=== PATIENT | female | born 1995 | race Hispanic/Latino ===

== ENCOUNTER 2019-11-13 17:12 | Emergency (ER) | payer OTHER, SELFPAY ==
[2019-11-13 17:16] VITALS: BP 125/86; PULSE 80; RESP 16; TEMP 36.5; O2SAT 97; BMI 25.7
--- NOTE | 2019-11-13 18:00 | ED.ABDPAIN ---
HPI - Abdominal Pain <Alexa Valdovinos PA-C - Last Filed: 11/13/19 19:37> General Chief Complaint: Abdominal Pain Stated Complaint: abdominal pains Time Seen by Provider: 11/13/19 17:26 Source: patient Mode of arrival: Ambulatory Limitations: no limitations History of Present Illness HPI narrative: This generally healthy 23-year-old female comes to ED secondary to abdominal pain, new to town and unable to see local PCP. She states that 3 days ago, she had some mild bloating and pressure in her lower abdomen that seemed to resolve. Yesterday, she had more intense pain in her lower mid abdomen that seemed to radiate to the right flank area or into the pelvis at times. She states that this was a combination of pressure and intermittent sharp stabbing pain, sometimes more pressure with walking. She states that pain is considerably improved today, took ibuprofen yesterday but not today and able to go about more normal activity. She states that she has not had any fevers. Some chills yesterday, no chills or sweats today. She states that yesterday she had some pressure and pain with urination, perhaps mild frequency. That seems largely resolved today. She has not had hematuria. She denies any constipation, diarrhea or blood in the stools. She had some mild nausea yesterday when pain was more intense, none today. She has not vomited. She does not have any chest pain dyspnea or extremity pain and has not had any cough or respiratory symptoms recently. She has not had any diet changes or new medications. She does have a history of kidney stone that required laser extraction. LMP was 2 weeks ago. She denies any other past medical or surgical history. Related Data Allergies Allergy/AdvReac Type Severity Reaction Status Date / Time No Known Drug Allergies Allergy Verified 11/13/19 17:21 Review of Systems <Alexa Valdovinos PA-C - Last Filed: 11/13/19 19:37> Review of Systems ROS Unobtainable: All systems reviewed & are unremarkable except as noted in HPI and below Patient History <Aelxa Valdovinos PA-C - Last Filed: 11/13/19 19:37> Medical History (Updated 11/13/19 @ 19:13 by Alexa Valdovinos PA-C) History of kidney stones (Resolved) Surgical History (Updated 11/13/19 @ 18:46 by Alexa Valdovinos PA-C) Status post laser lithotripsy of ureteral calculus (Resolved) Social History Smoking Status: Never smoker Smoking Status: Never smoker alcohol intake frequency: a few times a week Substance Use Type: does not use Exam <Alexa Valdovinos PA-C - Last Filed: 11/13/19 19:37> Narrative Exam Narrative: GENERAL APPEARANCE: Patient sitting comfortably, in no distress. HEENT: PERRL, EOMI, no scleral icterus NECK: Supple LUNGS: Clear to auscultation bilaterally. HEART: Rate and rhythm regular, normal S1 and S2, no S3 or S4. ABDOMEN: Soft, nondistended, bowel sounds present x 4 quadrants, no masses palpable, no hepatosplenomegaly. Very minimal lower quadrant midline tenderness without guarding or rebound EXTREMITIES: No edema, no calf tenderness DERMATOLOGIC: No jaundice or exanthem NEUROLOGIC: Alert and oriented with normal speech and coordination Initial Vital Signs Initial Vital Signs: Vital Signs Temperature 97.7 F 11/13/19 17:16 Pulse Rate 80 11/13/19 17:16 Respiratory Rate 16 11/13/19 17:16 Blood Pressure 125/86 11/13/19 17:16 Pulse Oximetry 97 11/13/19 17:16 <Trev Latham DO - Last Filed: 11/13/19 19:42> Initial Vital Signs Initial Vital Signs: Vital Signs Temperature 97.7 F 11/13/19 17:16 Pulse Rate 80 11/13/19 17:16 Respiratory Rate 16 11/13/19 17:16 Blood Pressure 125/86 11/13/19 17:16 Pulse Oximetry 97 11/13/19 17:16 Course <Alexa Valdovinos PA-C - Last Filed: 11/13/19 19:37> Course Additional Information: Patient's symptoms have improved considerably since yesterday. She is afebrile, without vomiting. Given pain radiating to right flank and pelvis and history of kidney stone, suspect that she probably passed a stone. Reviewed lab work and UA, decided not to image based on improvement in her symptoms, exam and lab findings, however she agreed to return to ED if any acutely worsening symptoms again prior to seeing her new PCP on Sunday Orders Ordered: ED Orders 11/13/19 17:49 Urine Microscopic Stat 11/13/19 18:20 Complete Blood Count AUTO DIFF Stat Comprehensive Metabolic Panel Stat Lipase Stat Vital Signs Vital signs: Vital Signs - 8 hr 11/13/19 17:16 11/13/19 18:06 11/13/19 19:00 Temperature 97.7 F Pulse Rate 80 99 H 81 Respiratory Rate 16 18 Blood Pressure 125/86 Blood Pressure [Left Arm] 128/73 109/66 Pulse Oximetry 97 100 100 <Trev Latham DO - Last Filed: 11/13/19 19:42> Orders Ordered: ED Orders 11/13/19 17:49 Urine Microscopic Stat 11/13/19 18:20 Complete Blood Count AUTO DIFF Stat Comprehensive Metabolic Panel Stat Lipase Stat Vital Signs Vital signs: Vital Signs - 8 hr 11/13/19 17:16 11/13/19 18:06 11/13/19 19:00 Temperature 97.7 F Pulse Rate 80 99 H 81 Respiratory Rate 16 18 Blood Pressure 125/86 Blood Pressure [Left Arm] 128/73 109/66 Pulse Oximetry 97 100 100 MDM - Abdominal Pain <Alexa Valdovinos PA-C - Last Filed: 11/13/19 19:37> Lab Data Result diagrams: 11/13/19 18:20 11/13/19 18:20 Labs: Lab Results 11/13/19 11/13/19 11/13/19 Range/Units 17:49 18:20 18:20 WBC 6.0 (4.5-11.0) X10^3/uL RBC 4.31 (4.0-5.2) X10^6/uL Hgb 13.2 (12.0-16.0) g/dL Hct 38.4 (36-46) % MCV 89.0 (80-100) fL MCH 30.6 (26-34) PG MCHC 34.4 (30-36) % RDW 12.7 (11.6-14.8) % Plt Count 170 (150-400) X10^3/uL Neut % (Auto) 54.0 (50-75) % Lymph % (Auto) 34.4 (25-40) % [place] % (Auto) 8.7 (3-14) % Eos % (Auto) 2.6 (2-4) % Baso % (Auto) 0.3 (0-2) % Neut # (Auto) 3300 (6598-8589) /uL Lymph # (Auto) 2100 (6600-6388) /uL [place] # (Auto) 500 (0-900) /uL Eos # (Auto) 200 (0-450) /uL Baso # (Auto) 0 (0-100) /uL Sodium 138 (137-145) mmol/L Potassium 3.7 (3.4-5.1) mmol/L Chloride 102 (98-107) mmol/L Carbon Dioxide 26 (22-32) mmol/L BUN 11 (7-17) mg/dL Creatinine 0.60 (0.52-1.04) mg/dL Estimated GFR > 60.0 (>60) mL/min BUN/Creatinine Ratio 18.3 (6-22) Glucose 87 (70-100) mg/dL Calcium 9.9 (8.4-10.2) mg/dL Total Bilirubin 0.4 (0.2-1.3) mg/dL AST 28 (14-36) IU/L ALT 26 (<35) IU/L Alkaline Phosphatase 96 (38-126) U/L Total Protein 7.6 (6.3-8.2) g/dL Albumin 4.7 (3.5-5.0) g/dL Globulin 2.9 (1.7-4.1) g/dL Albumin/Globulin Ratio 1.6 (1.0-2.8) Lipase 115 (23-300) U/L Urine RBC 0-1/hpf (0-5/HPF) Urine WBC 0-1/hpf (0-5/HPF) Ur Squamous Epith Cells 1-5 /hpf (0-5/HPF) Ur Transition Epith Cell 1-5/hpf (0-5/HPF) Urine Bacteria Occasional (0-1) (None) Ur Culture Indicated? Cult not indicated Point of care testing: Point of Care Testing Test Results Negative Urine Dip Bedside Urine Glucose Negative Bedside Urine Bilirubin - Negative Bedside Urine Ketone +/- 5 Urine Specific [place] 1.025 Bedside Urine Occult Blood - Negative Bedside Urine pH 7.0 Bedside Urine Protein +/- 15 Bedside Urine Urobilinogen +/- 1mg Bedside Urine Nitrite - Negative Bedside Urine Leukocytes +/- 15 Esterase <Trev Latham DO - Last Filed: 11/13/19 19:42> Lab Data Labs: Lab Results 11/13/19 11/13/19 11/13/19 Range/Units 17:49 18:20 18:20 WBC 6.0 (4.5-11.0) X10^3/uL RBC 4.31 (4.0-5.2) X10^6/uL Hgb 13.2 (12.0-16.0) g/dL Hct 38.4 (36-46) % MCV 89.0 (80-100) fL MCH 30.6 (26-34) PG MCHC 34.4 (30-36) % RDW 12.7 (11.6-14.8) % Plt Count 170 (150-400) X10^3/uL Neut % (Auto) 54.0 (50-75) % Lymph % (Auto) 34.4 (25-40) % [place] % (Auto) 8.7 (3-14) % Eos % (Auto) 2.6 (2-4) % Baso % (Auto) 0.3 (0-2) % Neut # (Auto) 3300 (6554-7534) /uL Lymph # (Auto) 2100 (9322-5478) /uL [place] # (Auto) 500 (0-900) /uL Eos # (Auto) 200 (0-450) /uL Baso # (Auto) 0 (0-100) /uL Sodium 138 (137-145) mmol/L Potassium 3.7 (3.4-5.1) mmol/L Chloride 102 (98-107) mmol/L Carbon Dioxide 26 (22-32) mmol/L BUN 11 (7-17) mg/dL Creatinine 0.60 (0.52-1.04) mg/dL Estimated GFR > 60.0 (>60) mL/min BUN/Creatinine Ratio 18.3 (6-22) Glucose 87 (70-100) mg/dL Calcium 9.9 (8.4-10.2) mg/dL Total Bilirubin 0.4 (0.2-1.3) mg/dL AST 28 (14-36) IU/L ALT 26 (<35) IU/L Alkaline Phosphatase 96 (38-126) U/L Total Protein 7.6 (6.3-8.2) g/dL Albumin 4.7 (3.5-5.0) g/dL Globulin 2.9 (1.7-4.1) g/dL Albumin/Globulin Ratio 1.6 (1.0-2.8) Lipase 115 (23-300) U/L Urine RBC 0-1/hpf (0-5/HPF) Urine WBC 0-1/hpf (0-5/HPF) Ur Squamous Epith Cells 1-5 /hpf (0-5/HPF) Ur Transition Epith Cell 1-5/hpf (0-5/HPF) Urine Bacteria Occasional (0-1) (None) Ur Culture Indicated? Cult not indicated Point of care testing: Point of Care Testing Test Results Negative Urine Dip Bedside Urine Glucose Negative Bedside Urine Bilirubin - Negative Bedside Urine Ketone +/- 5 Urine Specific [place] 1.025 Bedside Urine Occult Blood - Negative Bedside Urine pH 7.0 Bedside Urine Protein +/- 15 Bedside Urine Urobilinogen +/- 1mg Bedside Urine Nitrite - Negative Bedside Urine Leukocytes +/- 15 Esterase Discharge Plan Departure Patient Disposition: Home Clinical Impression: Calculus of kidney Discharge Date/Time: 11/13/19 19:17 Instructions: DI for Kidney Stones Activity Restrictions/Additional Instructions: There were no acute findings on your lab studies today to explain your abdominal pain, however given the way that you described it and the way it has improved, I suspect you may have had another kidney stone that passed. You may wish to take ibuprofen 400-800 mg every 8 hours for the next couple of days to help with any residual pain. Drink plenty of fluids and you can continue your normal diet. As we talked about, you should return to the ED if you have any acutely worsening symptoms again or new symptoms such as fever or vomiting. Otherwise, please follow-up with your new PCP in a few days for recheck as you have planned. Referrals: Noemy Rojas ARNP [Non-Staff] - <Trev Latham DO - Last Filed: 11/13/19 19:42> Sign Out Provider Sign Out Attestation: Dr Latham Co-Sign Statement: I was available for consultation during this patient's emergency department visit. This chart is signed by myself for administrative purposes only. I did not have direct contact with this patient during this visit. They were seen independently by the APC.
[2019-11-13 18:06] VITALS: BP 128/73; PULSE 99; RESP 18; O2SAT 100
[2019-11-13 18:29] LABS: Bacteria Urine Occasional (0-1); Culture Indicated Urine Cult Not Indicated; RBC Urine 0-1/HPF (0-5/HPF); Squamous Epithelial Cell Urine 1-5 /HPF (0-5/HPF); Transitional Epi Cells Urine 1-5/HPF (0-5/HPF); WBC Urine 0-1/HPF (0-5/HPF)
[2019-11-13 18:35] LABS: Add Manual Diff / Slide Review NO; Basophils Absolute Auto 0 /uL (0-100); Basophils Percent Auto 0.3 % (0-2); Eosinophils Absolute Auto 200 /uL (0-450); Eosinophils Percent Auto 2.6 % (2-4); Hematocrit 38.4 % (36-46); Hemoglobin 13.2 g/dL (12.0-16.0); Lymphocytes Absolute Auto 2100 /uL (1100-4500); Lymphocytes Percent Auto 34.4 % (25-40); Mean Corpuscular HGB Conc 34.4 % (30-36); Mean Corpuscular Hemoglobin 30.6 PG (26-34); Monocytes Absolute Auto 500 /uL (0-900); Monocytes Percent Auto 8.7 % (3-14); Neutrophils Absolute Auto 3300 /uL (1500-7000); Platelet Count 170 X10^3/uL (150-400); Red Blood Cell Count 4.31 X10^6/uL (4.0-5.2); Red Cell Distribution Width 12.7 % (11.6-14.8)
[2019-11-13 18:48] LABS: Alanine Aminotransferase 26 IU/L (<35); Albumin 4.7 g/dL (3.5-5.0); Albumin Globulin Ratio 1.6 (1.0-2.8); Alkaline Phosphatase 96 U/L (38-126); Aspartate Aminotransferase 28 IU/L (14-36); BUN Creatinine Ratio 18.3 (6-22); Bilirubin Total 0.4 mg/dL (0.2-1.3); Blood Urea Nitrogen 11 mg/dL (7-17); Calcium 9.9 mg/dL (8.4-10.2); Carbon Dioxide 26 mmol/L (22-32); Chloride 102 mmol/L (98-107); Estimated Glomerular Filt Rate > 60.0 mL/min (>60); Globulin 2.9 g/dL (1.7-4.1); Glucose 87 mg/dL (70-100); HEMOLYSIS < 15 (0-50); Lipase 115 U/L (23-300); Potassium 3.7 mmol/L (3.4-5.1); Sodium 138 mmol/L (137-145); Total Protein 7.6 g/dL (6.3-8.2)
[2019-11-13 19:00] VITALS: BP 109/66; PULSE 81; O2SAT 100
== END 2019-11-13 19:17 | disposition home or self-care (01) ==
PROVIDERS: Emergency Provider Internal Medicine
DX: N20.0 Calculus of kidney (principal); Z87.442 Personal history of urinary calculi
CPT/HCPCS: 36415; 80053; 81003; 81015; 81025; 83690; 85025; 99283